=== PATIENT | male | born 1950 | race Caucasian/White ===

== ENCOUNTER → 2020-06-15 15:33 | Outpatient (CLI) | payer OTHER, SELFPAY ==
--- NOTE | 2020-06-15 16:38 | DI.MRI.S_ITS ---
PROCEDURE: MR STROKE Pre- and post-contrast brain MRI, non-contrast brain MR angiogram, pre- and postcontrast neck MR angiogram INDICATIONS: [facility] CEREBRALVASCULAR DISEASE TECHNIQUE: Brain: Noncontrast axial T1 spin echo, axial T2 fast spin echo, sagittal and axial FLAIR, coronal T2 fast spin echo, axial gradient echo, axial diffusion and ADC through the brain. After the administration of contrast, axial 3D VIBE of the cranial vasculature and brain. Brain MRA: Non-contrast 3-D time of flight MR angiogram, with multiple faeyosn-ecgoxiblk-henmrcbybl (MIP) reformats performed. Neck MRA: Axial and sagittal TruFISP through the neck. Coronal dynamic MR angiogram during administration of contrast in the arterial and venous phases, with 3-dimenstional zmpxxsh-dcjyziddq-bnakoshvoa (MIP) reformats constructed from subtraction images. COMPARISON: None. FINDINGS: Image quality: Excellent. BRAIN: CSF spaces: Ventricles are normal in size and shape. Basal cisterns are patent. No extra-axial fluid collections. Brain: No acute intracranial bleeds or mass effects. Small chronic bilateral cerebellar infarcts. Cornejo-white matter interface is normal. Diffusion weighted images demonstrate multiple small regions of increased signal intensity predominantly located within the bilateral frontal and parietal lobes as well as the bilateral cerebellar hemispheres. These regions demonstrate mild FLAIR signal elevation and low ADC map, consistent with subacute infarcts. There is a curvilinear region of high T1/FLAIR and low gradient echo signal intensity within a left parieto-occipital lobe sulcus, which could indicate a small amount of acute subarachnoid hemorrhage. There is a region of curvilinear cortical enhancement and mild ill-defined FLAIR signal elevation just inferior to this location within the left posterolateral occipital lobe, spanning roughly 15 mm, which is somewhat indeterminate. Brainstem appears normal. Normal intravascular flow voids are present. No abnormal intracranial enhancement. Skull and face: Calvarial marrow signal is normal. Orbits appear normal. Sinuses: Sinuses and mastoids are clear. BRAIN MR ANGIOGRAM: Anterior circulation: Intracranial internal carotid arteries are normal in size and enhancement. The flow within the paired anterior cerebral arteries is normal and symmetric. The flow within the middle cerebral arteries is normal and symmetric. The anterior communicating artery is seen. No stenoses, occlusions, or aneurysms. Posterior circulation: The visualized portions of the vertebral arteries demonstrate normal caliber, and join to form a normal appearing basilar artery. The flow within the posterior cerebral arteries is normal and symmetric. No stenoses, occlusions, or aneurysms. NECK MR ANGIOGRAM: Carotids: Great vessels demonstrate a conventional anatomy as they arise from the aortic arch. The origins of the common carotid arteries appear patent. The calibers and courses of both common carotid arteries are normal. The bifurcation regions appear normal bilaterally. The internal carotid arteries demonstrate normal course and caliber. Posterior circulation: The origins of the vertebral arteries appear patent. More superior portions of both vertebral arteries demonstrate normal course and caliber, and join to form a normal appearing basilar artery. Miscellaneous: Subclavian arteries appear patent. Pre-contrast images through the neck show no soft tissue abnormalities. IMPRESSION: BRAIN MRI: 1. 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 2. Small focus of subarachnoid hemorrhage within the left parietal occipital lobe. 3. Indeterminate region of curvilinear postcontrast enhancement within the left occipital lobe. This could be secondary to a resolving late subacute infarct with associated laminar cortical necrosis. Follow-up brain MRI with and without intravenous contrast in roughly 3 months is recommended to exclude less likely, more aggressive etiologies. BRAIN MR ANGIOGRAM: Negative cerebral MR angiography. NECK MR ANGIOGRAM: 1. No internal carotid artery stenosis. 2. Patent bilateral vertebral arteries. Findings discussed with Dr. Cornelius Henriquez on 06/15/2020 at 16:55 hours. Dictated by: Yuki Gonzalez M.D. on 06/15/2020 at 16:41 Approved by: Yuki Gonzalez M.D. on 06/15/2020 at 16:55
== END ==
PROVIDERS: PCP Internal Medicine; Referring Provider Internal Medicine; Visit Provider Internal Medicine
DX: I67.89 Other cerebrovascular disease (principal); R29.898 Other symptoms and signs involving the musculoskeletal system
CPT/HCPCS: 70548; 70553; A9579

== ENCOUNTER 2020-06-15 17:23 | Emergency (ER) | payer OTHER, SELFPAY ==
[2020-06-15] VITALS (15 sets, daily range): BP systolic 133–150; BP diastolic 61–96; PULSE 73–84; RESP 15–21; TEMP 36.9; O2SAT 93–99
--- NOTE | 2020-06-15 17:32 | ED_ITS ---
HPI - Recheck/Abnormal Lab/Rx <Sonia Chen MD - Last Filed: 06/16/20 20:20> General Chief Complaint: Recheck/Abnormal Lab/Rx Stated Complaint: got MRI today/told to go to ER Time Seen by Provider: 06/15/20 17:32 Source: patient Mode of arrival: Ambulatory Limitations: no limitations History of Present Illness HPI narrative: 70-year-old gentleman was chopping wood and using a chainsaw 10 days ago, went to bed and woke up with his right hand slightly numb and unable to use it completely. He is left handed. He was seen by his primary care physician approximately 2 days after that who ordered an MRI that was done this afternoon. The MRI this afternoon shows BRAIN MRI: 1. 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 2. Small focus of subarachnoid hemorrhage within the left parietal occipital lobe. 3. Indeterminate region of curvilinear postcontrast enhancement within the left occipital lobe. This could be secondary to a resolving late subacute infarct with associated laminar cortical necrosis. Follow-up brain MRI with and without intravenous contrast in roughly 3 months is recommended to exclude less likely, more aggressive etiologies. In talking with Dr Encinas, Stroke neurology, he does agree that it does look like small ridge subarachnoid hemorrhage, suggests complete inpatient workup at a stroke facility with neurology and neurosurgery available. Will work on bed availability. Related Data Allergies Allergy/AdvReac Type Severity Reaction Status Date / Time Penicillins Allergy Verified 06/15/20 17:30 <Trace Baker DO - Last Filed: 06/15/20 23:15> General Source: patient Mode of arrival: Ambulatory Limitations: no limitations History of Present Illness HPI narrative: 70-year-old male former smoker with noncontributory medical history presents after receiving outpatient MRI finding concerning symptoms. Ten days ago he was operating a chainsaw and afterwards noted some difficulty using his right hand, complaining of numbness and tingling. He denies any blurred vision, trouble with speech or ambulation or any other symptoms that th ink of. He denies any injury. He denies any history of trouble with blood pressure, cholesterol or diabetes. He takes no blood thinners. He denies any trauma or injury. Only other symptoms include a vague headache complaint: abnormal lab <Trace Baker DO - Last Filed: 06/15/20 23:15> Constitutional Constitutional: Denies chills, Denies fatigue, Denies fever(s), Denies frequent falls, Reports headache(s), Denies lethargy and Denies weakness Eyes Eyes: Denies change in vision, Denies eye discharge, Denies irritation and Denies loss of vision ENT Ears, Nose, Mouth, and Throat: Denies change in voice, Denies dizziness, Reports headache(s), Denies neck pain, Denies sore throat and Denies throat swelling Cardiovascular Cardiovascular: Denies chest pain, Denies irregular heart rhythm, Denies lightheadedness, Denies palpitations, Denies dyspnea, Denies dyspnea on exertion and Denies orthopnea Respiratory Respiratory: Denies cough, Denies dyspnea, Denies dyspnea on exertion and Denies wheezing Gastrointestinal Gastrointestinal: Denies abdominal pain, Denies change in bowel habits, Denies diarrhea, Denies nausea and Denies vomiting Musculoskeletal Musculoskeletal: Denies neck pain and Denies numbness Integumentary/Breasts Skin/Breast: Denies pruritus, Denies erythema, Denies rash and Denies wounds Neurologic Neurologic: Denies behavioral changes, Denies confusion, Denies dizziness, Denies frequent falls, Reports headache(s), Reports lack of coordination, Denies loss of vision, Denies numbness and Denies weakness Psychiatric Psychiatric: Denies anxiety, Denies behavioral changes, Denies confusion, Denies depression, Denies homicidal ideation and Denies suicidal ideation Endocrine Endocrine: Denies fatigue, Denies flushing and Denies palpitations Hematologic/Lymphatic Hematologic/Lymphatic: Denies easy bruising Allergic/Immunologic Allergic/Immunologic: Denies urticaria, Denies throat swelling and Denies w heezing Patient History <Sonia Chen MD - Last Filed: 06/16/20 20:20> Social History Smoking Status: Former smoker Smoking Status: Former smoker alcohol intake frequency: 0-2 drinks per day Alcohol type: beer Substance Use Type: marijuana Exam <Sonia Chen MD - Last Filed: 06/16/20 20:20> Initial Vital Signs Initial Vital Signs: Vital Signs Temperature 98.5 F 06/15/20 17:27 Pulse Rate 79 09/08/20 17:27 Respiratory Rate 16 06/15/20 17:27 Blood Pressure 142/61 H 06/15/20 17:27 Pulse Oximetry 97 06/15/20 17:27 <Trace Baker DO - Last Filed: 06/15/20 23:15> Narrative Exam Narrative: GENERAL: [70] year old patient appears stated age. Well- nourished, well-developed patient, in mild distress. HEAD: Atraumatic. Normocephalic. EYES: Pupils equal round and reactive. Extraocular motions intact. No scleral icterus. No injection or drainage. ENT: Nose without bleeding, purulent drainage. Throat without erythema, tonsillar hypertrophy or exudate. Airway patent. NECK: Trachea midline. Non tender CARDIOVASCULAR: Regular rate and rhythm without murmurs, gallops, or rubs. RESPIRATORY: Clear to auscultation. Breath sounds equal bilaterally. No wheezes, rales, or rhonchi. GASTROINTESTINAL: Abdomen soft, non-tender, nondistended. EXTREMITIES: No edema or joint tenderness. BACK: Nontender without deformity or crepitance. No flank tenderness. NEURO: AOx3. SKIN: No rash or erythema of visible areas Initial Vital Signs Initial Vital Signs: Vital Signs Temperature 98.5 F 06/15/20 17:27 Pulse Rate 79 06/15/20 17:27 Respiratory Rate 16 06/15/20 17:27 Blood Pressure 142/61 H 06/15/20 17:27 Pulse Oximetry 97 06/15/20 17:27 Scores <Sonia Chen MD - Last Filed: 06/16/20 20:20> ABCD2 Citation: Lancet. 2006Nov 03;369(7645):283-92. Validation and refinement of scores to predict very early stroke risk after transient ischaemic attack. Edil MEI1, Luis Miguel PM, Christopher MN, Pawel MF, Rock JS, Abhishek AL, Nicola S. <Trace Baker DO - Last Filed: 06/15/20 23:15> NIH Stroke Scale Level of Conciousness: Alert, keenly responsive Ask month/age: Answers both questions correctly. Open/close eyes, close hand: Performs both tasks correctly Best gaze horizontal: Normal Visual butt: No visual loss Facial palsy: Normal symetrical movement Left arm drift: No drift for full 10 sec Right arm drift: Some effort against gravity, cannot maintain, drifts down to bed Left leg drift: No drift for full 5 sec Right leg drift: No drift for full 5 sec Limb ataxia: Absent Sensory on face/arms/legs: Mild to moderate sensory loss, can tell touch Best language: No aphasia, normal Dysarthria: Normal Extinction or inattention: No abnormality Total NIH Stroke scale score: 3 Course <Sonia Chen MD - Last Filed: 06/16/20 20:20> Orders Ordered: Discontinued Medications Aspirin (Aspirin Chew) 81 mg PO NOW ONE Stop: 06/15/20 21:49 Last Admin: 06/15/20 22:36 Dose: 81 mg Documented by: PROWANSO Sodium Chloride (Normal Saline 0.9%) 1,000 mls @ 150 mls/hr IV CONT TOMMIE Last Infusion: 06/15/20 23:28 Dose: 0 mls/hr Documented by: Admin: 06/15/20 18:35 Dose: 150 mls/hr Documented by: HECTOR Vital Signs Vital signs: Vital Signs - 8 hr 06/15/20 17:27 06/15/20 17:48 06/15/20 18:00 Temperature 98.5 F Pulse Rate 79 82 78 Respiratory Rate 16 20 Blood Pressure 142/61 H 135/85 Pulse Oximetry 97 99 97 06/15/20 18:30 06/15/20 19:01 06/15/20 19:02 Temperature Pulse Rate 76 84 83 Respiratory Rate 20 Blood Pressure 142/76 H 150/96 H Pulse Oximetry 96 97 97 06/15/20 19:30 06/15/20 20:00 06/15/20 20:30 Temperature Pulse Rate 78 77 83 Respiratory Rate Blood Pressure 138/75 134/70 133/72 Pulse Oximetry 96 95 96 06/15/20 21:00 Temperature Pulse Rate 77 Respiratory Rate 17 Blood Pressure Pulse Oximetry 95 <Trace Baker DO - Last Filed: 06/15/20 23:15> Orders Ordered: Discontinued Medications Aspirin (Aspirin Chew) 81 mg PO NOW ONE Stop: 06/15/20 21:49 Last Admin: 06/15/20 22:36 Dose: 81 mg Documented by: KSWANSO Sodium Chloride (Normal Saline 0.9%) 1,000 mls @ 150 mls/hr IV CONT TOMMIE Last Infusion: 06/15/20 23:28 Dose: 0 mls/hr Documented by: Admin: 06/15/20 18:35 Dose: 150 mls/hr Documented by: HECTOR Reevaluation(s) Reevaluation #1: patient has no evolution of symptoms and remains unchnaged from his arrival Consultations Consultation #1: Dr. Be consulted with Neurology at [facility] who is very much in agreement with plan and need for transfer. Requests non-con Head CT to track possible evolution of bleed and call back with results. Consultation #2: Hospitalist at [facility] happy to accept. Vital Signs Vital signs: Vital Signs - 8 hr 06/15/20 17:27 06/15/20 17:48 06/15/20 18:00 Temperature 98.5 F Pulse Rate 79 82 78 Respiratory Rate 16 20 Blood Pressure 142/61 H 135/85 Pulse Oximetry 97 99 97 06/15/20 18:30 06/15/20 19:01 06/15/20 19:02 Temperature Pulse Rate 76 84 83 Respiratory Rate 20 Blood Pressure 142/76 H 150/96 H Pulse Oximetry 96 97 97 06/15/20 19:30 06/15/20 20:00 06/15/20 20:30 Temperature Pulse Rate 78 77 83 Respiratory Rate Blood Pressure 138/75 134/70 133/72 Pulse Oximetry 96 95 96 06/15/20 21:00 Temperature Pulse Rate 77 Respiratory Rate 17 Blood Pressure Pulse Oximetry 95 MDM - Recheck/Abnormal Lab/Rx <Sonia Chen MD - Last Filed: 06/16/20 20:20> Medical Records Attestation: I reviewed the patient's medical records. Lab Data Result diagrams: 06/15/20 18:20 06/15/20 18:20 Labs: Lab Results 06/15/20 06/15/20 06/15/20 Range/Units 18:20 18:20 18:20 WBC 8.0 (4.5-11.0) X10^3/uL RBC 4.13 L (4.5-5.9) X10^6/uL Hgb 13.9 (13.5-17.5) g/dL Hct 41.3 (41-53) % MCV 99.8 (80-100) fL MCH 33.6 (26-34) PG MCHC 33.7 (30-36) % RDW 12.7 (11.6-14.8) % Plt Count 323 (150-400) X10^3/uL Neut % (Auto) 65.6 (50-75) % Lymph % (Auto) 20.0 L (25-40) % Charles % (Auto) 11.1 (3-14) % Eos % (Auto) 2.5 (2-4) % Baso % (Auto) 0.8 (0-2) % Neut # (Auto) 5200 (6012-6141) /uL Lymph # (Auto) 1600 (4107-5566) /uL Charles # (Auto) 900 (0-900) /uL Eos # (Auto) 200 (0-450) /uL Baso # (Auto) 100 (0-100) /uL PT 13.2 H (10.1-12.7) SECONDS INR 1.1 (0.9-1.3) APTT 33 (26.4-36.2) SECONDS Sodium (137-145) mmol/L Potassium (3.4-5.1) mmol/L Chloride (98-107) mmol/L Carbon Dioxide (22-32) mmol/L BUN (9-20) mg/dL Creatinine (0.66-1.25) mg/dL Estimated GFR (>60) mL/min BUN/Creatinine Ratio (6-22) Glucose (80-110) mg/dL Calcium (8.4-10.2) mg/dL Ethyl Alcohol < 10 ( - 10) mg/dL COVID-19 PCR (Negative) 06/15/20 06/15/20 Range/Units 18:20 19:10 WBC (4.5-11.0) X10^3/uL RBC (4.5-5.9) X10^6/uL Hgb (13.5-17.5) g/dL Hct (41-53) % MCV (80-100) fL MCH (26-34) PG MCHC (30-36) % RDW (11.6-14.8) % Plt Count (150-400) X10^3/uL Neut % (Auto) (50-75) % Lymph % (Auto) (25-40) % Charles % (Auto) (3-14) % Eos % (Auto) (2-4) % Baso % (Auto) (0-2) % Neut # (Auto) (8468-0541) /uL Lymph # (Auto) (3260-3925) /uL Charles # (Auto) (0-900) /uL Eos # (Auto) (0-450) /uL Baso # (Auto) (0-100) /uL PT (10.1-12.7) SECONDS INR (0.9-1.3) APTT (26.4-36.2) SECONDS Sodium 137 (137-145) mmol/L Potassium 4.1 (3.4-5.1) mmol/L Chloride 102 (98-107) mmol/L Carbon Dioxide 32 (22-32) mmol/L BUN 15 (9-20) mg/dL Creatinine 1.04 (0.66-1.25) mg/dL Estimated GFR > 60.0 (>60) mL/min BUN/Creatinine Ratio 14.4 (6-22) Glucose 91 (80-110) mg/dL Calcium 8.6 (8.4-10.2) mg/dL Ethyl Alcohol ( - 10) mg/dL COVID-19 PCR Negative (Negative) Urine Dip Bedside Urine Glucose Negative Bedside Urine Bilirubin - Negative Bedside Urine Ketone +/- 5 Urine Specific [place] 1.020 Bedside Urine Occult Blood - Negative Bedside Urine pH 6.0 Bedside Urine Protein - Negative Bedside Urine Urobilinogen - Negative Bedside Urine Nitrite - Negative Bedside Urine Leukocytes - Negative Esterase Imaging Data Brain MRI: Radiologist's Impression: FINDINGS: Image quality: Excellent. BRAIN: CSF spaces: Ventricles are normal in size and shape. Basal cisterns are patent. No extra-axial fluid collections. Brain: No acute intracranial bleeds or mass effects. Small chronic bilateral cerebellar infarcts. Cornejo-white matter interface is normal. Diffusion weighted images demonstrate multiple small regions of increased signal intensity predominantly located within the bilateral frontal and parietal lobes as well as the bilateral cerebellar hemispheres. These regions demonstrate mild FLAIR signal elevation and low ADC map, consistent with subacute infarcts. There is a curvilinear region of high T1/FLAIR and low gradient echo signal intensity within a left parieto-occipital lobe sulcus, which could indicate a small amount of acute subarachnoid hemorrhage. There is a region of curvilinear cortical enhancement and mild ill-defined FLAIR signal elevation just inferior to this lo cation within the left posterolateral occipital lobe, spanning roughly 15 mm, which is somewhat indeterminate. Brainstem appears normal. Normal intravascular flow voids are present. No abnormal intracranial enhancement. Skull and face: Calvarial marrow signal is normal. Orbits appear normal. Sinuses: Sinuses and mastoids are clear. BRAIN MR ANGIOGRAM: Anterior circulation: Intracranial internal carotid arteries are normal in size and enhancement. The flow within the paired anterior cerebral arteries is normal and symmetric. The flow within the middle cerebral arteries is normal and symmetric. The anterior communicating artery is seen. No stenoses, occlusions, or aneurysms. Posterior circulation: The visualized portions of the vertebral arteries demonstrate normal caliber, and join to form a normal appearing basilar artery. The flow within the posterior cerebral arteries is normal and symmetric. No stenoses, occlusions, or aneurysms. NECK MR ANGIOGRAM: Carotids: Great vessels demonstrate a conventional anatomy as they arise from the aortic arch. The origins of the common carotid arteries appear patent. The calibers and courses of both common carotid arteries are normal. The bifurcation regions appear normal bilaterally. The internal carotid arteries demonstrate normal course and caliber. Posterior circulation: The origins of the vertebral arteries appear patent. More superior portions of both vertebral arteries demonstrate normal course and ca liber, and join to form a normal appearing basilar artery. Miscellaneous: Subclavian arteries appear patent. Pre-contrast images through the neck show no soft tissue abnormalities. IMPRESSION: BRAIN MRI: 1. 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 2. Small focus of subarachnoid hemorrhage within the left parietal occipital lobe. 3. Indeterminate region of curvilinear postcontrast enhancement within the left occipital lobe. This could be secondary to a resolving late subacute infarct with associated laminar cortical necrosis. Follow-up brain MRI with and without intravenous contrast in roughly 3 months is recommended to exclude less likely, more aggressive etiologies. BRAIN MR ANGIOGRAM: Negative cerebral MR angiography. NECK MR ANGIOGRAM: 1. No internal carotid artery stenosis. 2. Patent bilateral vertebral arteries. Findings discussed with Dr. Cornelius Henriquez on 06/15/2020 at 16:55 hours. Dictated by: Yuki Gonzalez M.D. on 06/15/2020 at 16:41 <Trace Baker DO - Last Filed: 06/15/20 23:15> Lab Data Labs: Lab Results 06/15/20 06/15/20 06/15/20 Range/Units 18:20 18:20 18:20 WBC 8.0 (4.5-11.0) X10^3/uL RBC 4.13 L (4.5-5.9) X10^6/uL Hgb 13.9 (13.5-17.5) g/dL Hct 41.3 (41-53) % MCV 99.8 (80-100) fL MCH 33.6 (26-34) PG MCHC 33.7 (30-36) % RDW 12.7 (11.6-14.8) % Plt Count 323 (150-400) X10^3/uL Neut % (Auto) 65.6 (50-75) % Lymph % (Auto) 20.0 L (25-40) % Charles % (Auto) 11.1 (3-14) % Eos % (Auto) 2.5 (2-4) % Baso % (Auto) 0.8 (0-2) % Neut # (Auto) 5200 (5075-7474) /uL Lymph # (Auto) 1600 (0037-0303) /uL Charles # (Auto) 900 (0-900) /uL Eos # (Auto) 200 (0-450) /uL Baso # (Auto) 100 (0-100) /uL PT 13.2 H (10.1-12.7) SECONDS INR 1.1 (0.9-1.3) APTT 33 (26.4-36.2) SECONDS Sodium (137-145) mmol/L Potassium (3.4-5.1) mmol/L Chloride (98-107) mmol/L Carbon Dioxide (22-32) mmol/L BUN (9-20) mg/dL Creatinine (0.66-1.25) mg/dL Estimated GFR (>60) mL/min BUN/Creatinine Ratio (6-22) Glucose (80-110) mg/dL Calcium (8.4-10.2) mg/dL Ethyl Alcohol < 10 ( - 10) mg/dL COVID-19 PCR (Negative) 06/15/20 06/15/20 Range/Units 18:20 19:10 WBC (4.5-11.0) X10^3/uL RBC (4.5-5.9) X10^6/uL Hgb (13.5-17.5) g/dL Hct (41-53) % MCV (80-100) fL MCH (26-34) PG MCHC (30-36) % RDW (11.6-14.8) % Plt Count (150-400) X10^3/uL Neut % (Auto) (50-75) % Lymph % (Auto) (25-40) % Charles % (Auto) (3-14) % Eos % (Auto) (2-4) % Baso % (Auto) (0-2) % Neut # (Auto) (2371-6796) /uL Lymph # (Auto) (7599-5748) /uL Charles # (Auto) (0-900) /uL Eos # (Auto) (0-450) /uL Baso # (Auto) (0-100) /uL PT (10.1-12.7) SECONDS INR (0.9-1.3) APTT (26.4-36.2) SECONDS Sodium 137 (137-145) mmol/L Potassium 4.1 (3.4-5.1) mmol/L Chloride 102 (98-107) mmol/L Carbon Dioxide 32 (22-32) mmol/L BUN 15 (9-20) mg/dL Creatinine 1.04 (0.66-1.25) mg/dL Estimated GFR > 60.0 (>60) mL/min BUN/Creatinine Ratio 14.4 (6-22) Glucose 91 (80-110) mg/dL Calcium 8.6 (8.4-10.2) mg/dL Ethyl Alcohol ( - 10) mg/dL COVID-19 PCR Negative (Negative) Urine Dip Bedside Urine Glucose Negative Bedside Urine Bilirubin - Negative Bedside Urine Ketone +/- 5 Urine Specific [place] 1.020 Bedside Urine Occult Blood - Negative Bedside Urine pH 6.0 Bedside Urine Protein - Negative Bedside Urine Urobilinogen - Negative Bedside Urine Nitrite - Negative Bedside Urine Leukocytes - Negative Esterase Imaging Data CT scan - head: Radiologist's Impression: Ziyad Cedeno 70 M [address] [address] [address] Scan Report Signed Patient: Ziyad Cedeno [facility]#: [id number] : 1Acct:[id number] Age/Sex: 70 / MDate of Service: 06/15/20 Loc: ED Accession Number: [id number] Procedure: CT head/brain wo con Ordering Provider: Trace Baker D.O. PROCEDURE: CT HEAD/BRAIN WO CON INDICATIONS: SAH on MRI TECHNIQUE: Noncontrast 4.5 mm thick angled axial sections acquired from the foramen magnum to the vertex, with coronal and sagittal reformats. For radiation dose reduction, the following was used: automated exposure control, adjustment of mA and/or kV according to patient size. COMPARISON: [facility], , MR STROKE, 06/15/2020, 15:52. FINDINGS: Image quality: Excellent. CSF spaces: Basal cisterns are patent. No extra-axial fluid collections. The ventricles are symmetric in size and shape. Brain: Very minimal hyperdensity is noted in the posterior left parietal lobe corresponding to area of abnormality on MRI exam. It has not changed. Evolving foci of hypoattenuation corresponding to areas of restricted diffusion on recent MRI. There is cerebral volume loss for age, with resultant ventricular and sulcal prominence. There are periventricular and deep white matter chronic small vessel ischemic changes. There is intracranial internal carotid artery atherosclerosis. Skull and face: Calvarium and visualized facial bones appear intact, without suspicious lesions. Sinuses: Visualized sinuses and mastoids are clear. IMPRESSION: 1. Expected evolution of now subacute ischemia within the cerebellar and cer ebral hemispheres, corresponding to areas of ischemia from MRI brain of 06/15/2020. 2. Faint hyperdensity within the left parietal lobe corresponding to area of suspected hemorrhage on MRI exam. No interval change. Dictated by: Rachel Michael M.D. on 06/15/2020 at 21:01 Approved by: Rachel Michael M.D. on 06/15/2020 at 21:03 ECG Data Attestation: I personally reviewed and interpreted this ECG as follows: Prior ECG tracings: not available for review Interpretation: EKG is normal sinus rhythm rate [76 ] and free of any signs of ischemia or ectopy. No ST segmental elevation or depression. No T wave inversions <Trace Baker DO - Last Filed: 06/15/20 23:15> Critical Care Time Critical Care Time: Yes Total Critical Care Time: 30 Attestation: The high probability of a clinically significant, sudden or life threatening deterioration of the [NV] system(s) required my full and direct attention, intervention and personal management. The aggregate critical care time was [30] minutes. This time is in addition to time spent performing reported procedures but includes the following: [x] Data Review and interpretation [x] Patient assessment and monitoring of vital signs [x] Documentation [x] Medication orders and management Discharge Plan Departure Patient Disposition: [facility] Clinical Impression: Subarachnoid hematoma Qualifiers: Encounter type: initial encounter Loss of consciousness presence/duration: without LOC Qualified Code(s): S06.6X0A - Traumatic subarachnoid hemorrhage without loss of consciousness, initial encounter Cerebrovascular accident, embolic Qualifiers: Laterality of affected vessel: unspecified Discharge Date/Time: 06/15/20 23:20 Referrals: Jimbo Cota MD [Primary Care Provider] - ED Sign-out <Sonia Chen MD - Last Filed: 06/16/20 20:20> Cosign ED Attending Cosignature Attestation: I was immediately available in the department for consultation throughout this patient's visit. I agree with documentation as above. Sonia Chen MD
[2020-06-15] MEDS: SODIUM CHLORIDE 0.9% 1,000 ML 150 ML IV (18:35)
[2020-06-15 18:38] LABS: Add Manual Diff / Slide Review NO; Basophils Absolute Auto 100 /uL (0-100); Basophils Percent Auto 0.8 % (0-2); Eosinophils Absolute Auto 200 /uL (0-450); Eosinophils Percent Auto 2.5 % (2-4); Hematocrit 41.3 % (41-53); Hemoglobin 13.9 g/dL (13.5-17.5); Lymphocytes Absolute Auto 1600 /uL (1100-4500); Mean Corpuscular HGB Conc 33.7 % (30-36); Mean Corpuscular Hemoglobin 33.6 PG (26-34); Mean Corpuscular Volume 99.8 fL (80-100); Monocytes Absolute Auto 900 /uL (0-900); Monocytes Percent Auto 11.1 % (3-14); Neutrophils Absolute Auto 5200 /uL (1500-7000); Neutrophils Percent Auto 65.6 % (50-75); Platelet Count 323 X10^3/uL (150-400); Red Blood Cell Count 4.13 X10^6/uL (4.5-5.9); Red Cell Distribution Width 12.7 % (11.6-14.8)
[2020-06-15 18:47] LABS: INR 1.1 (0.9-1.3); Prothrombin Time 13.2 SECONDS (10.1-12.7)
[2020-06-15 18:49] LABS: PTT Partial Thromboplastin Tim 33 SECONDS (26.4-36.2)
[2020-06-15 18:51] LABS: BUN Creatinine Ratio 14.4 (6-22); Blood Urea Nitrogen 15 mg/dL (9-20); Calcium 8.6 mg/dL (8.4-10.2); Carbon Dioxide 32 mmol/L (22-32); Chloride 102 mmol/L (98-107); Estimated Glomerular Filt Rate > 60.0 mL/min (>60); Glucose 91 mg/dL (80-110); HEMOLYSIS < 15 (0-50); Potassium 4.1 mmol/L (3.4-5.1); Sodium 137 mmol/L (137-145)
[2020-06-15 18:52] LABS: Ethanol (ETOH) < 10 mg/dL
[2020-06-15 19:32] LABS: COVID19 -Nasal RAPID Negative (Negative)
--- NOTE | 2020-06-15 20:30 | DI.CT.S_ITS ---
PROCEDURE: CT HEAD/BRAIN WO CON INDICATIONS: SAH on MRI TECHNIQUE: Noncontrast 4.5 mm thick angled axial sections acquired from the foramen magnum to the vertex, with coronal and sagittal reformats. For radiation dose reduction, the following was used: automated exposure control, adjustment of mA and/or kV according to patient size. COMPARISON: [facility], MR, MR STROKE, 06/15/2020, 15:52. FINDINGS: Image quality: Excellent. CSF spaces: Basal cisterns are patent. No extra-axial fluid collections. The ventricles are symmetric in size and shape. Brain: Very minimal hyperdensity is noted in the posterior left parietal lobe corresponding to area of abnormality on MRI exam. It has not changed. Evolving foci of hypoattenuation corresponding to areas of restricted diffusion on recent MRI. There is cerebral volume loss for age, with resultant ventricular and sulcal prominence. There are periventricular and deep white matter chronic small vessel ischemic changes. There is intracranial internal carotid artery atherosclerosis. Skull and face: Calvarium and visualized facial bones appear intact, without suspicious lesions. Sinuses: Visualized sinuses and mastoids are clear. IMPRESSION: 1. Expected evolution of now subacute ischemia within the cerebellar and cerebral hemispheres, corresponding to areas of ischemia from MRI brain of 06/15/2020. 2. Faint hyperdensity within the left parietal lobe corresponding to area of suspected hemorrhage on MRI exam. No interval change. Dictated by: Rachel Michael M.D. on 06/15/2020 at 21:01 Approved by: Rachel Michael M.D. on 06/15/2020 at 21:03
[2020-06-15] MEDS: ASPIRIN 81 MG CHEW TAB PO (22:36)
== END 2020-06-15 23:20 | disposition short-term general hospital (02) ==
PROVIDERS: Emergency Provider Emergency Medicine; PCP Internal Medicine
DX: S06.6X0A Traumatic subarachnoid hemorrhage without loss of consciousness, initial encounter (principal); I67.89 Other cerebrovascular disease; R29.898 Other symptoms and signs involving the musculoskeletal system
CPT/HCPCS: 36415; 70450; 70548; 70553; 80048; 80320; 81003; 85025; 85610; 85730; 87635; 93005; 96360; 96361; 99285; 99291; A9579

== ENCOUNTER → 2020-11-04 15:20 | Oncology outpatient (ONC) | payer OTHER, SELFPAY ==
[2020-11-04 15:44] VITALS: BP 153/84; PULSE 80; RESP 18; TEMP 36.6; O2SAT 97
--- NOTE | 2020-11-04 16:06 | ONC.CONS ---
History of Present Illness - Data of Consult Patient: new to practice Consult date: 11/04/20 Requesting Physician: Dr. Gerber Bullock Primary Care Provider: Jimbo Cota MD - Consult Narrative Reason for consult: Left lung squamous cell carcinoma Narrative: Ziyad Cedeno is a 70 year old male with distant history of smoking. He quitted smoking 15 years. He presented with right arm weakness and numbness for about a month and Dr. Jimbo Cota at [facility] ordered MR brain. The scan showed multiple bilateral embolic strokes and small subarachnoid hemorrhage. The patient was then transferred to [facility]. He was noted to have significant weight loss in the past 6 months with chronic cough. On 06/16/2020, CXR revealed a suspicious lesion. Same day CT CAP showed a 3.7 cm left lower lobe lung lesion with tethering of adjacent pleura, mediastinal lymphadenopathy, indeterminate lesions in both kidneys and a wedge-shaped splenic infarct. On 09/27/2020, he underwent PET scan that showed a 2.2 x 2.7 cm spiculated mass in the superior segment of the left lower lobe with mSUV of 10.7, hypermetabolic left hilar, AP window, paratracheal and subcarinal lymph nodes, bilateral supraclavicular, left subpectoral and axillary lymph nodes. There is moderate emphysema. He was referred to and was evaluated by Dr. Gerber Bullock on 10/05/2020 via telephone visit. On , Dr. Bullock performed flexible fiberoptic bronchoscopy and endobronchial ultrasound with biopsy of mediastinal lymph nodes and flexible fiberoptic bronchoscopy with navigtional bronchoscopy biopsy. Ultrasound-directed biopsies were taken of the level 7?lymph nodes and Multiple samples were taken using a cup-tipped biopsy forceps from the pulmonary lesion in the left lobe. 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 Molecular studies noted PD-L1 (22C3 antibody) was positive(TPS 30%), but BRAF V600 mutation by PCR was negative. FNA from station 7 lymph node was positive for malignant cells consistent with metastatic poorly differentiated carcinoma. ? He has headache, sometimes a lot. He has Ok breathing. And he is using albuterol that helps. He is coughing with clear sputum and no hemoptysis. No chest pain. He has not noticed any lumps or bumps in the neck or axilla. He reports no abd pain. He is losing weight. He used to weigh 150 lbs, now 135 lbs. He denies constipation or diarrhea. CC: Chitra Archer MD Home Medications and Allergies Home Medications Medication Instructions Recorded Confirmed Type acetaminophen [Tylenol] 325 mg PRN PRN 11/04/20 11/04/20 History albuterol 108 mcg INHALATION PRN PRN 11/04/20 11/04/20 History aspirin 81 mg PO DAILY 11/04/20 11/04/20 History [id number]-[id number]-yqpldg 1 tab PO DAILY 11/04/20 11/04/20 History [Centrum Silver] Allergies Allergy/AdvReac Type Severity Reaction Status Date / Time Penicillins Allergy Verified 06/15/20 17:30 Medical History - Medical, Surgical, Family History Surgical History: Surgical History (Last Updated 11/04/20 @ 16:18 by Chitra Archer MD) History of tooth extraction Family History: Family History (Last Updated 11/04/20 @ 16:19 by Chitra Archer MD) Father Cancer Brother Skin cancer - Social History Smoking Status: Former smoker Substance Use Type: marijuana Alcohol Intake Frequency: other (bloody blossom and pickering when feels like.) Review of Systems - Patient Self-Reported Symptoms SR Constitution: Weight loss/gain SR eye issues: Vision changes SR ears, nose, mouth, throat issues: Cough SR respiratory issues: Cough SR Cardiovascular issues: Dizzy/lightheaded SR Neuro issues: Headache, Lightheaded/dizzy, Tremors or shaking, Difficulty balancing Exam Vital signs: Vital Signs Temp Pulse Resp BP Pulse Ox 11/04/20 15:44 98 F 80 18 153/84 H 97 Intake and Output 11/04/20 11/04/20 11/04/20 07:59 15:59 23:59 Other: Weight 61 kg Patient Weight 11/04/20 23:59 Weight 61 kg - Constitutional positive no acute distress, positive cachectic, positive chronically ill appearing, positive cooperative - Routine HEENT Exam Head: Present: normocephalic, atraumatic Eye: Present: EOMI, PERRL, normal accommodation. Absent: conjunctival icterus - Routine Neck Exam Present: supple, lymphadenopathy (left supraclavicular clusters of lymph nodes measuring about 1-2 cm.). Absent: thyromegaly, tracheal deviation - Routine Chest/Breast/Axilla Exam Axillae: Present: lymphadenopathy (multiple lymph nodes palpable in the left axilla, measuring 1-2 cm, no palpable nodes in right axilla ), mass (a 2x2 cm mass/node palpable long the later edge of pectoralis muscle) - Routine Respiratory Exam Present: Clear to auscultation bilaterally. Absent: rales, wheezes, crackles - Routine Cardiovascular Exam Present: RRR, S1, S2. Absent: murmur, gallop, rubs - Routine Abdominal Exam Present: soft. Absent: tenderness, distended, organomegaly - Routine Extremities Exam Absent: edema - Routine Neurological Exam Present: alert, oriented X3, CN II-XII intact. Absent: sensory deficit, motor deficit - Routine Psychiatric Exam Present: normal affect Results - Labs Pending Assessment and Plan (1) Squamous cell carcinoma of left lung 70-year-old gentleman presenteid with weight loss and chronic cough. He was diagnosed left lower lung squamous cell carcinoma after navigational bronchoscopy with biopsy on 10/15/2020. Molecular studies noted PD-L1 (22C3 antibody) was positive(TPS 30%), but BRAF V600 mutation by PCR was negative. PET from 09/17/2020 showed the left lower lung lesion with metastasis left hilar AP window, paratracheal and subcarinal lymph nodes, bilateral supraclavicular, left subpectoral and axillary lymph nodes based on PET scan on 09/17/2020. I explained to the patient that the PET scan indicated possible metastasis to the left axilla and subpectoral areas. I explained to the patient that the presence of metastasis in the these areas indicates that his cancer has metastasized outside the local regional area, thus it is stage IV. For stage IV lung cancer, usually it is considered incurable and the goal of the treatment would be palliative chemotherapy and/or immunotherapy. But if the left axillary lymph node is not metastasis, his disease will be stage IIIB. And the goal of the treatment would be concurrent chemoradiation therapy with goal of cure. Therefore our tumor board recommended CT-guided or ultrasound-guided biopsy of the left axillary lymph node to confirm the metastasis. In addition I talked with the patient that he will need chemotherapy whether it is stage IIIB or stage IV. For chemotherapy I would recommend a port. I explained to the patient that port is a device we put underneath the skin to facilitate administration of chemotherapy. It is highly recommended. Patient voiced understanding. I also talked with the patient that given the relatively localized area of the metastasis, I will have the patient to see radiation oncology at [facility] to evaluate if there is any role for concurrent chemo-radiation therapy. Plan : CT guided biopsy of left axillary node Surgical referral for port placement Referral to radiation oncology at [facility] in 3 weeks
--- NOTE | 2020-11-12 13:47 | ONC.SCHED ---
Spoke with Rosa regarding CT biopsy lymph node and it has to be approved by the radiologist first before scheduling and before knowing what codes to approve through the patient's insurance. Patient has [employer] insurance and will need approval for the CT and both referrals put in. One referral needs to be updated by Dr. Archer. I will give to him on Sunday to update the referral as it's blank but appears should be to RAD ON[facility] from dictation.
--- NOTE | 2020-11-16 11:53 | ONC.SCHED ---
Called radiology because they never got back to me regarding CT biopsy
--- NOTE | 2020-11-17 13:54 | ONC.SCHED ---
Spoke with Rosa In Diagnostic Imaging. Hand-carried Path to her for review by Dr. Grimes to see if this answers his question regarding what direction to go with testing. She will let me know.
--- NOTE | 2020-11-17 14:43 | ONC.SCHED ---
Per Bharti Malone [facility]: All PAs need to be handled by the primary doctor, Dr. Jimbo Cota. I spoke with Roberta @ [facility] and she is forwarding the request to their referrals team to get both port CPT [address] [facility] referrals in place for the patient ARIEL. When we get the CPT codes for the biopsy (being decided upon by Dr. Grimes, our radiologist, we will need to request PA through [facility].
--- NOTE | 2020-11-18 08:43 | ONC.SCHED ---
After printing pathology and getting to for Dr. Grimes's review, received fax from Dr. Grimes indicating that there is an addendum Dr. Archer will want to review. He invited Dr. Archer to discuss with him personally. Handed fax to Dr. Archer in his office this morning.
--- NOTE | 2020-11-23 15:17 | ONC.SCHED ---
Per Marleni @ [facility]: patient is electing to hold off on port placement until after his next visit with Dr. Archer.
--- NOTE | 2020-11-25 11:54 | ONC.SCHED ---
Spoke with Kristen @ [facility] about the referral placed by Dr. Archer for radiation consult. Insurance has been holding up the referral as [facility] has been trying to obtain authorization through the new [employer]. She asked that I fax everything over so they have it. Done. Included the authorization ([employer]) which states that it doesn't require authorization but also approved visits/treatment but to an incorrect location. Kristen stated she would get it to their insurance and see if they can get it straightened out.
--- NOTE | 2020-11-25 14:21 | ONC.SCHED ---
Per Dr. Archer: after speaking at length with Dr. Edward Grimes, we are going to cancel the CT guided biopsy.
--- NOTE | 2020-12-13 11:48 | PC.NURSE ---
Pt's spouse Cheryl called today to let us know that Ziyad is unable to make it to his appointment as he is having pain issues and oxygenation issues. Pt fell on hand and it is swollen, pt's spouse reported that O2 levels were in the 70's and requested O2. Pt is unable to ambulate to get to the car. They have a hospice appointment on December 23. This RN counseled them that they should call 911 to have assistance to come to the ED to have the patient evaluated. Pt's spouse did not want to call 911 or to come to the hospital. Making the provider aware with this note, awaiting advise on how best to assist this patient.
--- NOTE | 2020-12-13 14:37 | ONC.MSW ---
Description: T/C-Goals Conversation/Hospic Referral Activity: Pt's SO called earlier to notify us that pt would not be able to attend his appt. today, that he can no longer ambulate without total assistance, is having increasing dyspnea and pain, and he wants to stay home, not go to any more appointments. Pt and SO have already discussed feeling ready to start hospice, however she had thought it would not be available to them right away. REFRIGERATOR CRATER had called [facility] prior to this call, and was able to confirm that they could most likely bring pt onto service next weekend. He continues to insist on not going to the ER, even though his O2 sats were in the 70's. REFRIGERATOR CRATER offered support and validation as to their decision making and goals of comfort care only. Compiled pt's clinicals, faxed to [facility], explained this to Cheryl OCAMPO, and that hospice would call her to f/u. Encouraged her to call our accountant for symptom management needs until he's actually on hospice service, she expressed understanding.
--- NOTE | 2020-12-21 10:17 | ONC.MSW ---
*Sent bereavement forms.
== END ==
PROVIDERS: PCP Internal Medicine; Referring Provider Internal Medicine; Visit Provider Internal Medicine Hematology & Oncology
DX: C34.32 Malignant neoplasm of lower lobe, left bronchus or lung (principal); C77.1 Secondary and unspecified malignant neoplasm of intrathoracic lymph nodes; Z87.891 Personal history of nicotine dependence
CPT/HCPCS: 99205; 99215